=== PATIENT | female | born 1945 | race Native Hawaiian/Other Pacific Islander ===

== ENCOUNTER 2016-09-13 06:32 | Day surgery (SDC) | payer BC | END 2016-09-13 09:05 | disposition home or self-care (01) | LOC: OR 06:32 | PROC: 08RK3JZ Replacement of Left Lens with Synthetic Substitute, Percutaneous Approach (ICD-10-PCS; principal; 2016-09-13) | PROC: 08933ZZ Drainage of Left Anterior Chamber, Percutaneous Approach (ICD-10-PCS; 2016-09-13) | DX: H25.812 Combined forms of age-related cataract, left eye (principal); H52.222 Regular astigmatism, left eye | CPT/HCPCS: 66984; J0171; V2632 ==

== ENCOUNTER 2018-01-10 09:43 | Outpatient (CLI) | payer BC ==
[2018-01-10 10:38] LABS: PLATELET COUNT 293 K/uL (152-353)
[2018-01-10 11:02] LABS: POTASSIUM 3.9 mmol/L (3.6-5.2)
== END 2018-01-10 23:40 | disposition home or self-care (01) ==
LOC: RAD 09:43
PROVIDERS: Internal Medicine
DX: Z01.818 Encounter for other preprocedural examination (principal); E11.9 Type 2 diabetes mellitus without complications; E78.00 Pure hypercholesterolemia, unspecified
CPT/HCPCS: 36415; 80053; 80061; 81000; 82043; 82570; 83036; 84439; 84443; 85027

== ENCOUNTER 2018-03-16 09:31 | Outpatient (CLI) | payer BC ==
[2018-03-16 09:59] LABS: PLATELET COUNT 238 K/uL (152-353)
[2018-03-16 10:05] LABS: POTASSIUM 4.1 mmol/L (3.6-5.2)
== END 2018-03-16 20:33 | disposition home or self-care (01) ==
LOC: LABW 09:31
PROVIDERS: Nurse Practitioner Adult Health
DX: R93.1 Abnormal findings on diagnostic imaging of heart and coronary circulation (principal); Z01.810 Encounter for preprocedural cardiovascular examination
CPT/HCPCS: 36415; 80053; 85027

== ENCOUNTER 2018-03-24 09:21 | Outpatient (CLI) | payer BC ==
[2018-03-24 09:47] LABS: POTASSIUM 3.9 mmol/L (3.6-5.2)
== END 2018-03-24 19:20 | disposition home or self-care (01) ==
LOC: LABW 09:21
PROVIDERS: Nurse Practitioner Adult Health
DX: E11.9 Type 2 diabetes mellitus without complications (principal); Z79.899 Other long term (current) drug therapy
CPT/HCPCS: 36415; 80048

== ENCOUNTER 2018-06-02 07:15 | Day surgery (SDC) | payer BC ==
[~2018-06-02] VITALS: Ht 175.3 cm; Wt 63.5 kg
[2018-06-02 08:15] LABS: PLATELET COUNT 314 K/uL (152-353)
[2018-06-02 08:24] LABS: POTASSIUM 4.2 mmol/L (3.6-5.2)
== END 2018-06-02 11:30 | disposition home or self-care (01) ==
LOC: INF 07:15 → OR 07:15
PROVIDERS: Internal Medicine
PROC: 05HY33Z Insertion of Infusion Device into Upper Vein, Percutaneous Approach (ICD-10-PCS; principal; 2018-06-02)
DX: M86.471 Chronic osteomyelitis with draining sinus, right ankle and foot (principal); E11.621 Type 2 diabetes mellitus with foot ulcer; L97.511 Non-pressure chronic ulcer of other part of right foot limited to breakdown of skin
CPT/HCPCS: 36571; 80048; 82550; 85027; 96365; C1751; J0878

== ENCOUNTER 2018-06-03 06:38 | Outpatient (CLI) | payer BC | END 2018-06-03 21:56 | disposition home or self-care (01) | LOC: INF 06:38 | DX: M86.471 Chronic osteomyelitis with draining sinus, right ankle and foot (principal); E11.621 Type 2 diabetes mellitus with foot ulcer; L97.511 Non-pressure chronic ulcer of other part of right foot limited to breakdown of skin | CPT/HCPCS: 96365; 96375; J1642 ==

== ENCOUNTER 2018-06-04 06:27 | Outpatient (CLI) | payer BC | END 2018-06-04 23:23 | disposition home or self-care (01) | LOC: INF 06:27 | DX: M86.471 Chronic osteomyelitis with draining sinus, right ankle and foot (principal); E11.621 Type 2 diabetes mellitus with foot ulcer; L97.511 Non-pressure chronic ulcer of other part of right foot limited to breakdown of skin | CPT/HCPCS: 96365; 96375; J1642 ==

== ENCOUNTER 2018-06-05 06:12 | Outpatient (CLI) | payer BC ==
[~2018-06-05] VITALS: Ht 175.3 cm; Wt 63.5 kg
== END 2018-06-05 20:02 | disposition home or self-care (01) ==
LOC: INF 06:12
DX: M86.471 Chronic osteomyelitis with draining sinus, right ankle and foot (principal); E11.621 Type 2 diabetes mellitus with foot ulcer; L97.511 Non-pressure chronic ulcer of other part of right foot limited to breakdown of skin
CPT/HCPCS: 96365; 96375; J0878; J1642

== ENCOUNTER 2018-06-06 07:15 | Outpatient (CLI) | payer BC | END 2018-06-06 21:39 | disposition home or self-care (01) | LOC: INF 07:15 | DX: M86.471 Chronic osteomyelitis with draining sinus, right ankle and foot (principal); E11.621 Type 2 diabetes mellitus with foot ulcer; L97.511 Non-pressure chronic ulcer of other part of right foot limited to breakdown of skin | CPT/HCPCS: 96365 ==

== ENCOUNTER 2018-06-07 07:34 | Outpatient (CLI) | payer BC ==
[~2018-06-07] VITALS: Ht 175.3 cm; Wt 63.5 kg
[2018-06-07 08:35] VITALS: BP 114/55; TEMP 97.6
[2018-06-07 09:59] VITALS: BP 113/61; TEMP 97.7
== END 2018-06-07 19:00 | disposition home or self-care (01) ==
LOC: INF 07:34
DX: M86.471 Chronic osteomyelitis with draining sinus, right ankle and foot (principal); E11.621 Type 2 diabetes mellitus with foot ulcer; L97.511 Non-pressure chronic ulcer of other part of right foot limited to breakdown of skin
CPT/HCPCS: 96365; 96375; J0878

== ENCOUNTER 2018-06-08 07:41 | Outpatient (CLI) | payer BC ==
[~2018-06-08] VITALS: Ht 175.3 cm; Wt 63.5 kg
[2018-06-08 08:03] VITALS: BP 112/63; TEMP 97.6
[2018-06-08 09:04] VITALS: BP 123/65; TEMP 97.9
== END 2018-06-08 09:34 | disposition home or self-care (01) ==
LOC: INF 07:41
DX: M86.471 Chronic osteomyelitis with draining sinus, right ankle and foot (principal); E11.621 Type 2 diabetes mellitus with foot ulcer; L97.511 Non-pressure chronic ulcer of other part of right foot limited to breakdown of skin
CPT/HCPCS: 96365; 96375; J0878

== ENCOUNTER 2018-06-10 07:41 | Outpatient (CLI) | payer BC ==
[~2018-06-10] VITALS: Ht 175.3 cm; Wt 63.5 kg
== END 2018-06-10 23:59 | disposition home or self-care (01) ==
LOC: INF 07:41
DX: M86.471 Chronic osteomyelitis with draining sinus, right ankle and foot (principal); L97.511 Non-pressure chronic ulcer of other part of right foot limited to breakdown of skin
CPT/HCPCS: 96365; 96375; J0878; J1642

== ENCOUNTER 2018-06-11 07:31 | Outpatient (CLI) | payer BC ==
[~2018-06-11] VITALS: Ht 175.3 cm; Wt 63.5 kg
== END 2018-06-11 19:14 | disposition home or self-care (01) ==
LOC: INF 07:31
DX: M86.471 Chronic osteomyelitis with draining sinus, right ankle and foot (principal); L97.511 Non-pressure chronic ulcer of other part of right foot limited to breakdown of skin
CPT/HCPCS: 96365; 96375; J0878; J1642

== ENCOUNTER 2018-06-12 07:36 | Outpatient (CLI) | payer BC ==
[~2018-06-12] VITALS: Ht 175.3 cm; Wt 63.5 kg
== END 2018-06-12 18:57 | disposition home or self-care (01) ==
LOC: INF 07:36
DX: M86.471 Chronic osteomyelitis with draining sinus, right ankle and foot (principal); E11.621 Type 2 diabetes mellitus with foot ulcer; L97.511 Non-pressure chronic ulcer of other part of right foot limited to breakdown of skin
CPT/HCPCS: 96365; 96375; J0878; J1642

== ENCOUNTER 2018-06-13 07:35 | Outpatient (CLI) | payer BC | END 2018-06-13 20:42 | disposition home or self-care (01) | LOC: INF 07:35 | DX: M86.471 Chronic osteomyelitis with draining sinus, right ankle and foot (principal); E11.621 Type 2 diabetes mellitus with foot ulcer; L97.511 Non-pressure chronic ulcer of other part of right foot limited to breakdown of skin | CPT/HCPCS: 96365; 96375; J0878; J1642 ==

== ENCOUNTER 2018-06-14 07:42 | Outpatient (CLI) | payer BC ==
[~2018-06-14] VITALS: Ht 175.3 cm; Wt 63.5 kg
[2018-06-14 08:00] VITALS: BP 112/59; TEMP 98.1
[2018-06-14 09:08] VITALS: BP 125/59; TEMP 97.9
== END 2018-06-14 09:15 | disposition home or self-care (01) ==
LOC: INF 07:42
DX: M86.471 Chronic osteomyelitis with draining sinus, right ankle and foot (principal); E11.621 Type 2 diabetes mellitus with foot ulcer; L97.511 Non-pressure chronic ulcer of other part of right foot limited to breakdown of skin
CPT/HCPCS: 96365; 96375; J0878

== ENCOUNTER 2018-06-15 07:45 | Outpatient (CLI) | payer BC ==
[~2018-06-15] VITALS: Ht 175.3 cm; Wt 63.5 kg
[2018-06-15 08:15] VITALS: BP 114/66; TEMP 97.6
[2018-06-15 10:05] VITALS: BP 127/58; TEMP 98
== END 2018-06-15 22:29 | disposition home or self-care (01) ==
LOC: INF 07:45
DX: M86.471 Chronic osteomyelitis with draining sinus, right ankle and foot (principal); E11.621 Type 2 diabetes mellitus with foot ulcer; L97.511 Non-pressure chronic ulcer of other part of right foot limited to breakdown of skin
CPT/HCPCS: 96365; 96375; J0878

== ENCOUNTER 2018-06-16 07:43 | Outpatient (CLI) | payer BC ==
[~2018-06-16] VITALS: Ht 175.3 cm; Wt 63.5 kg
[2018-06-16 08:00] VITALS: BP 100/52; TEMP 98
[2018-06-16 08:33] LABS: PLATELET COUNT 297 K/uL (152-353)
[2018-06-16 08:51] LABS: POTASSIUM 4.1 mmol/L (3.6-5.2)
[2018-06-16 09:16] VITALS: BP 127/61; TEMP 97.8
== END 2018-06-16 23:20 | disposition home or self-care (01) ==
LOC: INF 07:43
PROVIDERS: Allergy & Immunology
DX: M86.471 Chronic osteomyelitis with draining sinus, right ankle and foot (principal); E11.621 Type 2 diabetes mellitus with foot ulcer; L97.511 Non-pressure chronic ulcer of other part of right foot limited to breakdown of skin
CPT/HCPCS: 80048; 82550; 83036; 85027; 96365; 96375; J0878

== ENCOUNTER 2018-06-17 07:34 | Outpatient (CLI) | payer BC ==
[~2018-06-17] VITALS: Ht 175.3 cm; Wt 63.5 kg
[2018-06-17 07:30] VITALS: BP 125/64; TEMP 97.6
[2018-06-17 08:15] VITALS: BP 135/59; TEMP 98
== END 2018-06-17 23:00 | disposition home or self-care (01) ==
LOC: INF 07:34
DX: M86.471 Chronic osteomyelitis with draining sinus, right ankle and foot (principal); E11.621 Type 2 diabetes mellitus with foot ulcer; L97.511 Non-pressure chronic ulcer of other part of right foot limited to breakdown of skin
CPT/HCPCS: 96365; J0878

== ENCOUNTER 2018-06-18 07:38 | Outpatient (CLI) | payer BC ==
[~2018-06-18] VITALS: Ht 175.3 cm; Wt 63.5 kg
== END 2018-06-18 09:30 | disposition home or self-care (01) ==
LOC: INF 07:38
DX: M86.471 Chronic osteomyelitis with draining sinus, right ankle and foot (principal); E11.621 Type 2 diabetes mellitus with foot ulcer; L97.511 Non-pressure chronic ulcer of other part of right foot limited to breakdown of skin
CPT/HCPCS: 96365; J0878

== ENCOUNTER 2018-06-19 07:33 | Outpatient (CLI) | payer BC ==
[~2018-06-19] VITALS: Ht 175.3 cm; Wt 63.5 kg
[2018-06-19 08:01] VITALS: BP 127/64; TEMP 98.2
[2018-06-19 09:12] VITALS: BP 119/60; TEMP 97.7
== END 2018-06-19 20:20 | disposition home or self-care (01) ==
LOC: INF 07:33
DX: M86.471 Chronic osteomyelitis with draining sinus, right ankle and foot (principal); E11.621 Type 2 diabetes mellitus with foot ulcer; L97.511 Non-pressure chronic ulcer of other part of right foot limited to breakdown of skin
CPT/HCPCS: 96365; 96375; J0878

== ENCOUNTER 2018-06-20 07:37 | Outpatient (CLI) | payer BC ==
[~2018-06-20] VITALS: Ht 175.3 cm; Wt 63.5 kg
[2018-06-20 09:00] VITALS: BP 127/50; TEMP 97.4
== END 2018-06-20 09:00 | disposition home or self-care (01) ==
LOC: INF 07:37
DX: M86.471 Chronic osteomyelitis with draining sinus, right ankle and foot (principal); E11.621 Type 2 diabetes mellitus with foot ulcer; L97.511 Non-pressure chronic ulcer of other part of right foot limited to breakdown of skin
CPT/HCPCS: 96365; 96375; J0878

== ENCOUNTER 2018-06-21 07:35 | Outpatient (CLI) | payer BC ==
[~2018-06-21] VITALS: Ht 175.3 cm; Wt 63.5 kg
[2018-06-21 09:07] VITALS: BP 115/57; TEMP 97.8
== END 2018-06-21 09:07 | disposition home or self-care (01) ==
LOC: INF 07:35
DX: M86.471 Chronic osteomyelitis with draining sinus, right ankle and foot (principal); E11.621 Type 2 diabetes mellitus with foot ulcer; L97.511 Non-pressure chronic ulcer of other part of right foot limited to breakdown of skin
CPT/HCPCS: 96365; 96375; J0878

== ENCOUNTER 2018-06-22 07:49 | Outpatient (CLI) | payer BC ==
[~2018-06-22] VITALS: Ht 175.3 cm; Wt 63.5 kg
[2018-06-22 08:05] VITALS: BP 119/59; TEMP 97.7
== END 2018-06-22 19:07 | disposition home or self-care (01) ==
LOC: INF 07:49
DX: M86.471 Chronic osteomyelitis with draining sinus, right ankle and foot (principal); E11.621 Type 2 diabetes mellitus with foot ulcer; L97.511 Non-pressure chronic ulcer of other part of right foot limited to breakdown of skin
CPT/HCPCS: 96365; 96375; J0878

== ENCOUNTER 2018-06-23 07:49 | Outpatient (CLI) | payer BC ==
[~2018-06-23] VITALS: Ht 175.3 cm; Wt 63.5 kg
[2018-06-23 08:10] VITALS: BP 110/64; TEMP 97.7
[2018-06-23 08:47] LABS: PLATELET COUNT 270 K/uL (152-353)
[2018-06-23 09:00] VITALS: BP 1227/58; TEMP 97.8
[2018-06-23 09:05] LABS: POTASSIUM 4.3 mmol/L (3.6-5.2)
== END 2018-06-23 19:09 | disposition home or self-care (01) ==
LOC: INF 07:49
DX: M86.471 Chronic osteomyelitis with draining sinus, right ankle and foot (principal); E11.621 Type 2 diabetes mellitus with foot ulcer; L97.511 Non-pressure chronic ulcer of other part of right foot limited to breakdown of skin
CPT/HCPCS: 36591; 80048; 82550; 85027; 96365; 96375; J0878

== ENCOUNTER 2018-06-24 07:46 | Outpatient (CLI) | payer BC ==
[~2018-06-24] VITALS: Ht 175.3 cm; Wt 63.5 kg
== END 2018-06-24 19:09 | disposition home or self-care (01) ==
LOC: INF 07:46
DX: M86.471 Chronic osteomyelitis with draining sinus, right ankle and foot (principal); L97.511 Non-pressure chronic ulcer of other part of right foot limited to breakdown of skin; E11.621 Type 2 diabetes mellitus with foot ulcer
CPT/HCPCS: 96365; 96375; J0878; J1642

== ENCOUNTER 2018-06-25 07:40 | Outpatient (CLI) | payer BC ==
[~2018-06-25] VITALS: Ht 175.3 cm; Wt 63.5 kg
== END 2018-06-25 19:14 | disposition home or self-care (01) ==
LOC: INF 07:40
DX: M86.471 Chronic osteomyelitis with draining sinus, right ankle and foot (principal); E11.621 Type 2 diabetes mellitus with foot ulcer; L97.511 Non-pressure chronic ulcer of other part of right foot limited to breakdown of skin
CPT/HCPCS: 96365; 96375; J0878; J1642

== ENCOUNTER 2018-06-26 08:11 | Outpatient (CLI) | payer BC ==
[~2018-06-26] VITALS: Ht 175.3 cm; Wt 63.5 kg
[2018-06-26 08:18] VITALS: BP 110/59; TEMP 98.2
[2018-06-26 09:10] VITALS: BP 120/67; TEMP 97.9
== END 2018-06-26 22:16 | disposition home or self-care (01) ==
LOC: INF 08:11
DX: M86.471 Chronic osteomyelitis with draining sinus, right ankle and foot (principal); E11.621 Type 2 diabetes mellitus with foot ulcer; L97.511 Non-pressure chronic ulcer of other part of right foot limited to breakdown of skin
CPT/HCPCS: 96365; 96375; J0878

== ENCOUNTER 2018-06-27 07:31 | Outpatient (CLI) | payer BC ==
[~2018-06-27] VITALS: Ht 175.3 cm; Wt 63.5 kg
[2018-06-27 07:50] VITALS: BP 102/72; TEMP 97.9
== END 2018-06-27 09:18 | disposition home or self-care (01) ==
LOC: INF 07:31
DX: M86.471 Chronic osteomyelitis with draining sinus, right ankle and foot (principal); E11.621 Type 2 diabetes mellitus with foot ulcer; L97.511 Non-pressure chronic ulcer of other part of right foot limited to breakdown of skin
CPT/HCPCS: 96365; 96375; J0878

== ENCOUNTER 2018-06-28 07:34 | Outpatient (CLI) | payer BC ==
[~2018-06-28] VITALS: Ht 175.3 cm; Wt 63.5 kg
== END 2018-06-28 19:19 | disposition home or self-care (01) ==
LOC: INF 07:34
DX: M86.471 Chronic osteomyelitis with draining sinus, right ankle and foot (principal); E11.621 Type 2 diabetes mellitus with foot ulcer; L97.511 Non-pressure chronic ulcer of other part of right foot limited to breakdown of skin
CPT/HCPCS: 96365; 96375; J0878

== ENCOUNTER 2018-06-29 07:40 | Outpatient (CLI) | payer BC ==
[~2018-06-29] VITALS: Ht 175.3 cm; Wt 63.5 kg
[2018-06-29 09:25] VITALS: BP 137/62; TEMP 97.7
== END 2018-06-29 09:15 | disposition home or self-care (01) ==
LOC: INF 07:40
DX: M86.471 Chronic osteomyelitis with draining sinus, right ankle and foot (principal); E11.621 Type 2 diabetes mellitus with foot ulcer; L97.511 Non-pressure chronic ulcer of other part of right foot limited to breakdown of skin
CPT/HCPCS: 96365; 96375; J0878

== ENCOUNTER 2018-07-01 07:47 | Outpatient (CLI) | payer BC ==
[~2018-07-01] VITALS: Ht 175.3 cm; Wt 63.5 kg
== END 2018-07-01 23:45 | disposition home or self-care (01) ==
LOC: INF 07:47
DX: M86.471 Chronic osteomyelitis with draining sinus, right ankle and foot (principal); E11.621 Type 2 diabetes mellitus with foot ulcer; L97.511 Non-pressure chronic ulcer of other part of right foot limited to breakdown of skin
CPT/HCPCS: 96365; 96375; J0878; J1642

== ENCOUNTER 2018-07-02 07:29 | Outpatient (CLI) | payer BC ==
[~2018-07-02] VITALS: Ht 175.3 cm; Wt 63.5 kg
== END 2018-07-02 19:08 | disposition home or self-care (01) ==
LOC: INF 07:29
DX: M86.471 Chronic osteomyelitis with draining sinus, right ankle and foot (principal); E11.621 Type 2 diabetes mellitus with foot ulcer; L97.511 Non-pressure chronic ulcer of other part of right foot limited to breakdown of skin
CPT/HCPCS: 96365; 96375; J0878; J1642

== ENCOUNTER 2018-07-03 07:40 | Outpatient (CLI) | payer BC ==
[~2018-07-03] VITALS: Ht 175.3 cm; Wt 63.5 kg
[2018-07-03 08:40] VITALS: BP 133/73; TEMP 98
== END 2018-07-03 09:00 | disposition home or self-care (01) ==
LOC: INF 07:40
DX: M86.471 Chronic osteomyelitis with draining sinus, right ankle and foot (principal); E11.621 Type 2 diabetes mellitus with foot ulcer; L97.511 Non-pressure chronic ulcer of other part of right foot limited to breakdown of skin
CPT/HCPCS: 96365; 96375; J0878

== ENCOUNTER 2018-07-04 07:44 | Outpatient (CLI) | payer BC ==
[~2018-07-04] VITALS: Ht 175.3 cm; Wt 63.5 kg
[2018-07-04 08:57] VITALS: BP 131/66; TEMP 97.6
== END 2018-07-04 09:10 | disposition home or self-care (01) ==
LOC: INF 07:44
DX: M86.471 Chronic osteomyelitis with draining sinus, right ankle and foot (principal); L97.511 Non-pressure chronic ulcer of other part of right foot limited to breakdown of skin; E11.621 Type 2 diabetes mellitus with foot ulcer
CPT/HCPCS: 96365; 96375; J0878

== ENCOUNTER 2018-07-05 07:49 | Outpatient (CLI) | payer BC ==
[~2018-07-05] VITALS: Ht 175.3 cm; Wt 59.0 kg
[2018-07-05 08:00] VITALS: BP 127/67; TEMP 98
[2018-07-05 08:52] VITALS: BP 117/62; TEMP 98
== END 2018-07-05 22:04 | disposition home or self-care (01) ==
LOC: INF 07:49
DX: M86.471 Chronic osteomyelitis with draining sinus, right ankle and foot (principal); E11.621 Type 2 diabetes mellitus with foot ulcer; L97.511 Non-pressure chronic ulcer of other part of right foot limited to breakdown of skin
CPT/HCPCS: 96365; 96375; J0878

== ENCOUNTER 2018-07-06 07:45 | Outpatient (CLI) | payer BC ==
[~2018-07-06] VITALS: Ht 175.3 cm; Wt 63.5 kg
[2018-07-06 08:05] VITALS: BP 117/64; TEMP 98.2
[2018-07-06 09:22] VITALS: BP 124/65; TEMP 97.9
== END 2018-07-06 09:33 | disposition home or self-care (01) ==
LOC: INF 07:45
DX: M86.471 Chronic osteomyelitis with draining sinus, right ankle and foot (principal); E11.621 Type 2 diabetes mellitus with foot ulcer; L97.511 Non-pressure chronic ulcer of other part of right foot limited to breakdown of skin
CPT/HCPCS: 96365; 96375; J0878

== ENCOUNTER 2018-07-07 07:57 | Outpatient (CLI) | payer BC ==
[~2018-07-07] VITALS: Ht 175.3 cm; Wt 63.5 kg
[2018-07-07 08:05] VITALS: BP 126/72; TEMP 97.8
[2018-07-07 08:40] LABS: PLATELET COUNT 243 K/uL (152-353)
[2018-07-07 08:54] LABS: POTASSIUM 4.1 mmol/L (3.6-5.2)
[2018-07-07 09:05] VITALS: BP 131/72; TEMP 97.7
== END 2018-07-07 09:35 | disposition home or self-care (01) ==
LOC: INF 07:57
PROVIDERS: Emergency Medicine
DX: M86.471 Chronic osteomyelitis with draining sinus, right ankle and foot (principal); E11.621 Type 2 diabetes mellitus with foot ulcer; L97.511 Non-pressure chronic ulcer of other part of right foot limited to breakdown of skin
CPT/HCPCS: 80048; 82550; 85027; 96365; 96375; J0878

== ENCOUNTER 2018-07-10 07:32 | Outpatient (CLI) | payer BC ==
[~2018-07-10] VITALS: Ht 175.3 cm; Wt 63.5 kg
[2018-07-10 09:10] VITALS: BP 131/77; TEMP 97.9
== END 2018-07-10 09:05 | disposition home or self-care (01) ==
LOC: INF 07:32
DX: M86.471 Chronic osteomyelitis with draining sinus, right ankle and foot (principal); E11.621 Type 2 diabetes mellitus with foot ulcer; L97.511 Non-pressure chronic ulcer of other part of right foot limited to breakdown of skin
CPT/HCPCS: 96365; 96375

== ENCOUNTER 2018-07-11 07:37 | Outpatient (CLI) | payer BC ==
[~2018-07-11] VITALS: Ht 175.3 cm; Wt 63.5 kg
[2018-07-11 09:15] VITALS: BP 134/71; TEMP 98.2
== END 2018-07-11 09:15 | disposition home or self-care (01) ==
LOC: INF 07:37
DX: M86.471 Chronic osteomyelitis with draining sinus, right ankle and foot (principal); E11.621 Type 2 diabetes mellitus with foot ulcer; L97.511 Non-pressure chronic ulcer of other part of right foot limited to breakdown of skin
CPT/HCPCS: 96365; 96375; J0878

== ENCOUNTER 2018-07-12 07:32 | Outpatient (CLI) | payer BC ==
[~2018-07-12] VITALS: Ht 175.3 cm; Wt 63.5 kg
[2018-07-12 08:05] VITALS: BP 127/98; TEMP 97.8
[2018-07-12 08:50] VITALS: BP 147/70; TEMP 98
== END 2018-07-12 08:57 | disposition home or self-care (01) ==
LOC: INF 07:32
DX: M86.471 Chronic osteomyelitis with draining sinus, right ankle and foot (principal); L97.511 Non-pressure chronic ulcer of other part of right foot limited to breakdown of skin; E11.621 Type 2 diabetes mellitus with foot ulcer
CPT/HCPCS: 96365; 96375; J0878

== ENCOUNTER 2018-07-13 07:39 | Outpatient (CLI) | payer BC ==
[~2018-07-13] VITALS: Ht 175.3 cm; Wt 63.5 kg
[2018-07-13 08:00] VITALS: BP 139/66; TEMP 97.7
[2018-07-13 09:25] VITALS: BP 139/68; TEMP 97.8
== END 2018-07-13 09:32 | disposition home or self-care (01) ==
LOC: INF 07:39
DX: M86.471 Chronic osteomyelitis with draining sinus, right ankle and foot (principal); L97.511 Non-pressure chronic ulcer of other part of right foot limited to breakdown of skin; E11.621 Type 2 diabetes mellitus with foot ulcer
CPT/HCPCS: 96365; 96375; J0878

== ENCOUNTER 2018-07-14 07:33 | Outpatient (CLI) | payer BC ==
[~2018-07-14] VITALS: Ht 175.3 cm; Wt 63.5 kg
[2018-07-14 07:50] VITALS: BP 123/66; TEMP 97.9
== END 2018-07-14 09:05 | disposition home or self-care (01) ==
LOC: INF 07:33
DX: M86.471 Chronic osteomyelitis with draining sinus, right ankle and foot (principal); E11.621 Type 2 diabetes mellitus with foot ulcer; L97.511 Non-pressure chronic ulcer of other part of right foot limited to breakdown of skin
CPT/HCPCS: 36591; 96365; 96375; J0878

== ENCOUNTER 2018-07-15 07:43 | Outpatient (CLI) | payer BC ==
[~2018-07-15] VITALS: Ht 30.5 cm; Wt 0.5 kg
== END 2018-07-15 23:01 | disposition home or self-care (01) ==
LOC: INF 07:43
DX: M86.471 Chronic osteomyelitis with draining sinus, right ankle and foot (principal); E11.621 Type 2 diabetes mellitus with foot ulcer; L97.511 Non-pressure chronic ulcer of other part of right foot limited to breakdown of skin
CPT/HCPCS: 96365; 96375; J0878; J1642

== ENCOUNTER 2018-07-17 07:42 | Outpatient (CLI) | payer BC ==
[~2018-07-17] VITALS: Ht 175.3 cm; Wt 63.5 kg
[2018-07-17 08:03] VITALS: BP 142/74; TEMP 97.9
[2018-07-17 09:00] VITALS: BP 129/76; TEMP 98
== END 2018-07-17 09:07 | disposition home or self-care (01) ==
LOC: INF 07:42
DX: M86.471 Chronic osteomyelitis with draining sinus, right ankle and foot (principal); E11.621 Type 2 diabetes mellitus with foot ulcer; L97.511 Non-pressure chronic ulcer of other part of right foot limited to breakdown of skin
CPT/HCPCS: 96365; 96375; J0878; J1642

== ENCOUNTER 2018-07-18 07:41 | Outpatient (CLI) | payer BC ==
[~2018-07-18] VITALS: Ht 175.3 cm; Wt 63.5 kg
[2018-07-18 07:50] VITALS: BP 146/72; TEMP 98
[2018-07-18 10:16] VITALS: BP 143/66; TEMP 98.1
== END 2018-07-18 08:52 | disposition home or self-care (01) ==
LOC: INF 07:41
DX: M86.471 Chronic osteomyelitis with draining sinus, right ankle and foot (principal); E11.621 Type 2 diabetes mellitus with foot ulcer; L97.511 Non-pressure chronic ulcer of other part of right foot limited to breakdown of skin
CPT/HCPCS: 96365; 96375; J0878; J1642

== ENCOUNTER 2018-07-19 07:42 | Outpatient (CLI) | payer BC ==
[~2018-07-19] VITALS: Ht 175.3 cm; Wt 63.5 kg
[2018-07-19 08:02] VITALS: BP 137/81; TEMP 97.8
[2018-07-19 09:02] VITALS: BP 126/74; TEMP 97.9
== END 2018-07-19 09:10 | disposition home or self-care (01) ==
LOC: INF 07:42
DX: M86.471 Chronic osteomyelitis with draining sinus, right ankle and foot (principal); E11.621 Type 2 diabetes mellitus with foot ulcer; L97.511 Non-pressure chronic ulcer of other part of right foot limited to breakdown of skin
CPT/HCPCS: 96365; 96375; J0878

== ENCOUNTER 2018-07-20 07:37 | Outpatient (CLI) | payer BC ==
[~2018-07-20] VITALS: Ht 175.3 cm; Wt 63.5 kg
[2018-07-20 07:59] VITALS: BP 131/69; TEMP 97.9
[2018-07-20 09:10] VITALS: BP 132/71; TEMP 98
== END 2018-07-20 09:33 | disposition home or self-care (01) ==
LOC: INF 07:37
DX: M86.471 Chronic osteomyelitis with draining sinus, right ankle and foot (principal); E11.621 Type 2 diabetes mellitus with foot ulcer; L97.511 Non-pressure chronic ulcer of other part of right foot limited to breakdown of skin
CPT/HCPCS: 96365; 96375; J0878

== ENCOUNTER 2018-07-21 07:47 | Outpatient (CLI) | payer BC ==
[~2018-07-21] VITALS: Ht 175.3 cm; Wt 63.5 kg
[2018-07-21 08:00] VITALS: BP 130/68; TEMP 97.8
[2018-07-21 08:24] LABS: PLATELET COUNT 232 K/uL (152-353)
[2018-07-21 08:35] LABS: POTASSIUM 4.2 mmol/L (3.6-5.2)
[2018-07-21 09:00] VITALS: BP 132/65; TEMP 97.5
== END 2018-07-21 09:04 | disposition home or self-care (01) ==
LOC: INF 07:47
PROVIDERS: Emergency Medicine
DX: M86.471 Chronic osteomyelitis with draining sinus, right ankle and foot (principal); E11.621 Type 2 diabetes mellitus with foot ulcer; L97.511 Non-pressure chronic ulcer of other part of right foot limited to breakdown of skin
CPT/HCPCS: 36591; 80048; 82550; 85027; 96365; 96375; J0878; J1642

== ENCOUNTER 2018-07-22 07:39 | Outpatient (CLI) | payer BC ==
[~2018-07-22] VITALS: Ht 175.3 cm; Wt 63.5 kg
== END 2018-07-22 21:07 | disposition home or self-care (01) ==
LOC: INF 07:39
DX: M86.471 Chronic osteomyelitis with draining sinus, right ankle and foot (principal); E11.621 Type 2 diabetes mellitus with foot ulcer; L97.511 Non-pressure chronic ulcer of other part of right foot limited to breakdown of skin
CPT/HCPCS: 96365; 96375; J0878; J1642

== ENCOUNTER 2018-07-23 07:49 | Outpatient (CLI) | payer BC ==
[~2018-07-23] VITALS: Ht 175.3 cm; Wt 63.5 kg
== END 2018-07-23 19:04 | disposition home or self-care (01) ==
LOC: INF 07:49
DX: M86.471 Chronic osteomyelitis with draining sinus, right ankle and foot (principal); E11.621 Type 2 diabetes mellitus with foot ulcer; L97.511 Non-pressure chronic ulcer of other part of right foot limited to breakdown of skin
CPT/HCPCS: 96365; 96375; J0878; J1642

== ENCOUNTER 2018-07-24 07:41 | Outpatient (CLI) | payer BC ==
[~2018-07-24] VITALS: Ht 175.3 cm; Wt 63.5 kg
[2018-07-24 08:02] VITALS: BP 140/62; TEMP 98.2
[2018-07-24 09:40] VITALS: BP 145/75; TEMP 98.1
== END 2018-07-24 09:50 | disposition home or self-care (01) ==
LOC: INF 07:41
DX: M86.471 Chronic osteomyelitis with draining sinus, right ankle and foot (principal); E11.621 Type 2 diabetes mellitus with foot ulcer; L97.511 Non-pressure chronic ulcer of other part of right foot limited to breakdown of skin
CPT/HCPCS: 96365; 96375; J0878

== ENCOUNTER 2018-07-25 07:38 | Outpatient (CLI) | payer BC ==
[~2018-07-25] VITALS: Ht 175.3 cm; Wt 63.5 kg
[2018-07-25 08:05] VITALS: BP 117/60; TEMP 98.2
[2018-07-25 09:00] VITALS: BP 121/72; TEMP 98.2
== END 2018-07-25 09:07 | disposition home or self-care (01) ==
LOC: INF 07:38
DX: M86.471 Chronic osteomyelitis with draining sinus, right ankle and foot (principal); E11.621 Type 2 diabetes mellitus with foot ulcer; L97.511 Non-pressure chronic ulcer of other part of right foot limited to breakdown of skin
CPT/HCPCS: 96365; 96375; J0878

== ENCOUNTER 2018-07-26 07:39 | Outpatient (CLI) | payer BC ==
[~2018-07-26] VITALS: Ht 175.3 cm; Wt 63.5 kg
[2018-07-26 08:30] VITALS: BP 127/66; TEMP 97.7
[2018-07-26 09:20] VITALS: BP 140/61; TEMP 97.7
== END 2018-07-26 09:30 | disposition home or self-care (01) ==
LOC: INF 07:39
DX: M86.471 Chronic osteomyelitis with draining sinus, right ankle and foot (principal); E11.621 Type 2 diabetes mellitus with foot ulcer; L97.511 Non-pressure chronic ulcer of other part of right foot limited to breakdown of skin
CPT/HCPCS: 96365; 96375

== ENCOUNTER 2018-07-27 07:52 | Outpatient (CLI) | payer BC ==
[~2018-07-27] VITALS: Ht 175.3 cm; Wt 63.5 kg
[2018-07-27 08:05] VITALS: BP 132/48; TEMP 97.6
[2018-07-27 08:58] VITALS: BP 138/75; TEMP 97.8
== END 2018-07-27 20:26 | disposition home or self-care (01) ==
LOC: INF 07:52
DX: M86.471 Chronic osteomyelitis with draining sinus, right ankle and foot (principal); E11.621 Type 2 diabetes mellitus with foot ulcer; L97.511 Non-pressure chronic ulcer of other part of right foot limited to breakdown of skin
CPT/HCPCS: 96365; 96375; J0878

== ENCOUNTER 2018-07-28 07:53 | Outpatient (CLI) | payer BC ==
[~2018-07-28] VITALS: Ht 175.3 cm; Wt 63.5 kg
[2018-07-28 08:02] VITALS: BP 136/72; TEMP 97.8
[2018-07-28 08:55] VITALS: BP 126/72; TEMP 97.8
== END 2018-07-28 09:12 | disposition home or self-care (01) ==
LOC: INF 07:53
DX: M86.471 Chronic osteomyelitis with draining sinus, right ankle and foot (principal); E11.621 Type 2 diabetes mellitus with foot ulcer; L97.511 Non-pressure chronic ulcer of other part of right foot limited to breakdown of skin
CPT/HCPCS: 87070; 96365; J0878

== ENCOUNTER 2018-10-10 09:56 | Outpatient (CLI) | payer BC ==
[2018-10-10 10:21] LABS: PLATELET COUNT 249 K/uL (152-353)
== END 2018-10-10 23:14 | disposition home or self-care (01) ==
LOC: LABW 09:56
PROVIDERS: Orthopaedic Surgery Foot and Ankle Surgery
DX: M86.679 Other chronic osteomyelitis, unspecified ankle and foot (principal); M86.671 Other chronic osteomyelitis, right ankle and foot; E11.9 Type 2 diabetes mellitus without complications
CPT/HCPCS: 36415; 83036; 85027; 85651; 86140

== ENCOUNTER 2018-11-07 08:49 | Outpatient (CLI) | payer BC ==
[2018-11-07 09:33] LABS: PLATELET COUNT 282 K/uL (152-353)
[2018-11-07 10:21] LABS: POTASSIUM 4.1 mmol/L (3.6-5.2)
== END 2018-11-07 20:29 | disposition home or self-care (01) ==
LOC: LABW 08:49
PROVIDERS: Internal Medicine
DX: E11.9 Type 2 diabetes mellitus without complications (principal)
CPT/HCPCS: 36415; 80053; 80061; 81000; 82043; 82570; 83036; 84443; 85027

== ENCOUNTER 2019-08-01 08:02 | Outpatient (CLI) | payer BC, OTHER | END 2019-08-01 20:52 | disposition home or self-care (01) | LOC: US 08:02 | DX: Z13.820 Encounter for screening for osteoporosis (principal); Z13.6 Encounter for screening for cardiovascular disorders; Z78.0 Asymptomatic menopausal state ==

== ENCOUNTER 2021-06-03 08:10 | Outpatient (CLI) | payer BC, OTHER | END 2021-06-03 19:43 | disposition home or self-care (01) | LOC: LABW 08:10 | PROVIDERS: ATTEND Internal Medicine | DX: D64.9 Anemia, unspecified (principal) | CPT/HCPCS: 36415; 82272; 82607; 82728; 82747; 83540; 83550 ==

== ENCOUNTER 2021-06-04 07:26 | Outpatient (CLI) | payer BC, OTHER | END 2021-06-04 19:19 | disposition home or self-care (01) | LOC: LAB 07:26 | PROVIDERS: ATTEND Internal Medicine | DX: D64.89 Other specified anemias (principal) | CPT/HCPCS: 82272 ==